=== PATIENT | male | born 1995 | race African-American/Black ===

== ENCOUNTER 2016-07-08 23:25 | Emergency (ER) | payer OTHER, BC ==
[~2016-07-08] VITALS: Ht 172.7 cm; Wt 92.2 kg
[2016-07-09 01:33] VITALS: BP 126/41
== END 2016-07-09 01:35 | disposition home or self-care (01) ==
LOC: EME 23:25 → EXP 23:25
PROC: 0HQFXZZ Repair Right Hand Skin, External Approach (ICD-10-PCS; principal; 2016-07-09)
DX: S61.411A Laceration without foreign body of right hand, initial encounter (principal); W20.8XXA Other cause of strike by thrown, projected or falling object, initial encounter; Y99.0 Civilian activity done for income or pay; F17.200 Nicotine dependence, unspecified, uncomplicated
CPT/HCPCS: 73130; 99281; 99283